=== PATIENT | male | born 1990 | race Caucasian/White ===

== ENCOUNTER 2020-01-18 14:51 | Emergency (ER) | payer BC, SELFPAY ==
[2020-01-18 15:09] VITALS: BP 146/89; PULSE 83; RESP 18; TEMP 36.3; O2SAT 99
[2020-01-18] MEDS: ACETAMINOPHEN 500 MG TABLET 1000 MG PO (15:35)
--- NOTE | 2020-01-18 15:53 | ED.GENADULT ---
HPI - General Adult General Chief complaint: Unspecified Stated complaint: body aches/st Time Seen by Provider: 01/18/20 15:08 Source: patient Mode of arrival: ambulatory Limitations: no limitations History of Present Illness HPI narrative: Patient is a 29-year-old male who presents with upper respiratory symptoms for the last 5 days and was tested for COVID-19 yesterday patient notes body aches chills congestion rhinorrhea and nonproductive cough patient is been taking ibuprofen with minimal improvement patient otherwise on arrival in no distress Related Data Allergies Allergy/AdvReac Type Severity Reaction Status Date / Time amoxicillin Allergy Unknown Unknown Unverified 01/18/20 15:12 clavulanic acid Allergy Unknown Unknown Unverified 01/18/20 15:12 Review of Systems Review of Systems: All systems reviewed & are unremarkable except as noted in HPI and below PMFSH Social History Social History (Updated 01/18/20 @ 15:54 by Yury Guevara PA-C) Smoking status: Never smoker Gender identity (if verbalized by the patient): Male Exam Narrative: Exam Narrative: GENERAL: Well-appearing, well-nourished, and in no acute distress. HEAD: Normocephalic, atraumatic. EYES: PERRLA and EOMI. ENT: Nares clear, no rhinorrhea or epistaxis. Mucous membranes moist. Oropharynx without tonsillar hypertrophy exudate or other lesions. CHEST: Clear to auscultation. No respiratory distress. No wheezes rales or rhonchi HEART: Regular rate and rhythm. No murmur heard. EXTREMITIES: Normal range of motion. No edema. SKIN: Warm, dry, no rash. NEURO: No focal deficits. Alert and oriented x3. Cranial nerves II through XII grossly intact PSYCH: Normal mood and affect. Course Course Emergency Course: Patient in the room in no distress aware of case findings treatment plan diagnosis agreeing to follow-up as directed Vital Signs Vital signs: Vital Signs Temperature 97.4 F L 01/18/20 15:09 Pulse Rate 83 01/18/20 15:09 Respiratory Rate 18 01/18/20 15:09 Blood Pressure 146/89 H 01/18/20 15:09 Pulse Oximetry 99 01/18/20 15:09 Temperature 97.4 F L 01/18/20 15:09 Pulse Rate 83 01/18/20 15:09 Respiratory Rate 18 01/18/20 15:09 Blood Pressure 146/89 H 01/18/20 15:09 Pulse Oximetry 99 01/18/20 15:09 Medical Decision Making MDM Narrative Medical decision making narrative: Patient with likely viral upper respiratory infection pending COVID-19 results afebrile nontoxic-appearing no distress felt appropriate for outpatient reevaluation agreed to follow-up as directed. Vital Signs Vital Signs: Vital Signs Temperature 97.4 F L 01/18/20 15:09 Pulse Rate 83 01/18/20 15:09 Respiratory Rate 18 01/18/20 15:09 Blood Pressure 146/89 H 01/18/20 15:09 Pulse Oximetry 99 01/18/20 15:09 Temperature 97.4 F L 01/18/20 15:09 Pulse Rate 83 01/18/20 15:09 Respiratory Rate 18 01/18/20 15:09 Blood Pressure 146/89 H 01/18/20 15:09 Pulse Oximetry 99 01/18/20 15:09 Lab Data Labs: Strep Screen Presumptive Negative *(Reference Range: Negative)* Discharge Plan Discharge Clinical Impression: Acute upper respiratory infection Patient Disposition: Home, Self-Care Condition: Stable Instructions: Antibiotic Form, COVID-19 (Coronavirus Disease 2019) (ED) Additional Instructions: Follow up with your primary care provider within 1-2 days to set up for reevaluation and discussion of your COVID-19 results. Go to ER for shortness of breath, difficulty breathing, chest pain, fever/chills, weakness, nauseau/vomitting, etc. or any other concerns. Stay well-hydrated Take any prescribed medications as directed. Self quarantine until you have received your results If you do not have a drug allergy to tylenol or motrin and can tolerate it then take tylenol or motrin as needed for discomfort/pain. Prescriptions: New fluticasone propionate [Flonase Allergy Relief]
== END 2020-01-18 16:03 | disposition home or self-care (01) ==
PROVIDERS: Emergency Provider Emergency Medicine; PCP Family Medicine
DX: J06.9 Acute upper respiratory infection, unspecified (principal); Z20.828 Contact with and (suspected) exposure to other viral communicable diseases
CPT/HCPCS: 87081; 87880; 99283; A9270

== ENCOUNTER 2021-09-03 18:12 | Emergency (ER) | payer BC, SELFPAY ==
--- NOTE | ~2021-09-03 | XR_ITS ---
EXAM: XR ankle LT min 3V HISTORY: INVERSION INJURY, LATERAL MALLEOLUS PAIN,HX OF FX COMPARISON: None available FINDINGS: Old lateral talar process fracture. Degenerative change at the tibiotalar joint. Plantar a nd Achilles enthesopathy. No acute fracture or dislocation. No ankle joint effusion. IMPRESSION: No acute osseous finding in the left ankle. Reviewed, dictated and finalized at location K.
--- NOTE | ~2021-09-03 | XR_ITS ---
EXAM: XR ankle RT min 3V HISTORY: INVERSION INJURY, ANTERIOR/GEN PAIN COMPARISON: None available FINDINGS: Normal mineralization. No fracture or dislocation. No lytic or blastic lesion. Degenerativ e changes at the tibiotalar articulation. Plantar and Achilles enthesopathy. Prominent os trigonum. N o erosion or periosteal change. Soft tissues within normal limits. IMPRESSION: No acute osseous finding in the right ankle. Reviewed, dictated and finalized at location K.
[2021-09-03 18:19] VITALS: BP 142/85; PULSE 83; RESP 20; TEMP 36.7; O2SAT 99
--- NOTE | 2021-09-03 18:34 | ED.LOWEXIN ---
HPI - Extremity Injury (Lower) General Chief Complaint: Extremity Injury, Lower Stated Complaint: ankle injury Time Seen by Provider: 09/03/21 18:36 Source: patient and RN notes reviewed Mode of arrival: ambulatory Limitations: no limitations History of Present Illness HPI Narrative: 30-year-old male presents with concern for bilateral ankle injury. He reports 2 weeks ago he jumped into a foam pit and injured his right ankle. Reports the next day stepped into a hole injuring his left ankle. He reports pain is not improving. Reports is more painful to bear weight. He denies intervention for his symptoms. He denies open skin, rash, redness, warmth. He reports swelling and bruising MD complaint: ankle injury Related Data Home Medications Medication Instructions Recorded Confirmed omega-3 fatty acids [Fish Oil] 1,000 mg PO DAILY 09/03/21 09/03/21 simvastatin 10 mg PO DAILY 09/03/21 09/03/21 Allergies Allergy/AdvReac Type Severity Reaction Status Date / Time amoxicillin Allergy Unknown Unknown Verified 09/03/21 18:37 clavulanic acid Allergy Unknown Unknown Verified 09/03/21 18:37 Review of Systems Review of Systems: CONSTITUTIONAL: Denies malaise, chills, sweats, or fever. SKIN: Denies rash or itching, open skin, laceration, abrasion, redness, warmth, swelling. MUSCULOSKELETAL: Reports bilateral ankle pain NEUROLOGIC: Denies numbness, weakness All systems reviewed & are unremarkable except as noted in HPI and below PMFSH Social History Social History (System 02/28/20 @ 09:08 by Oralia Calix) Smoking status: Never smoker Gender identity (if verbalized by the patient): Male Comments At time of signature, agree with nursing past medical, surgical, social and family history. There is no relevant family history pertinent to the presenting complaint Exam Narrative: GENERAL: Well-appearing, well-nourished, and in no acute distress. HEAD: Normocephalic, atraumatic. EYES: PERRLA, conjunctivae clear NECK: Supple. CHEST: Speaks in full sentences. No respiratory distress. HEART: Regular rate and rhythm. Normal and equal peripheral pulses. EXTREMITIES: Bilateral ankles, feet, digits have normal strength and sensation, normal range of motion. Mild left lateral edema and ecchymosis, mild right medial ecchymosis and edema. 5/5 strength with digit flexion and extension. Normal sensation with sensitivity to light touch and pain. No point tenderness. No open wounds, no skin tenting, no devitalized tissue or atrophy, no trophic changes, no obvious deformity, alignment normal, nearby joints and structures intact. Distal pulses palpable and equal bilaterally, skin warm, dry, pink. Capillary refill less than 3 seconds. SKIN: Warm, dry, no rash. NEURO: Alert and oriented x3. PSYCH: Normal mood and affect Course Course Emergency Course: Patient is aware of diagnosis, understands and agrees to treatment plan. Anticipatory guidance given. Patient agrees to follow-up as directed and is aware of reasons to seek care at the emergency department. Portions of this record may have been created with voice recognition software Level of Care: Express Care Visit Vital Signs Vital signs: Vital Signs Temperature 98.1 F 09/03/21 18:19 Pulse Rate 83 09/03/21 18:19 Respiratory Rate 20 09/03/21 18:19 Blood Pressure 142/85 H 09/03/21 18:19 Pulse Oximetry 99 09/03/21 18:19 Temperature 98.1 F 09/03/21 18:19 Pulse Rate 83 09/03/21 18:19 Respiratory Rate 20 09/03/21 18:19 Blood Pressure 142/85 H 09/03/21 18:19 Pulse Oximetry 99 09/03/21 18:19 Reviewed. MDM - Extremity Injury (Lower) MDM Narrative Medical decision making narrative: Patients injury and pain is consistent with musculoskeletal etiology. No signs of neurological or vascular compromise on exam. Compartments and tissues are soft without signs of compartment syndrome. Pain is felt appropriate for further evaluation on an outpatient basis. Imagin
== END 2021-09-03 19:01 | disposition home or self-care (01) ==
PROVIDERS: Emergency Provider Nurse Practitioner; PCP Family Medicine
DX: S93.401A Sprain of unspecified ligament of right ankle, initial encounter (principal); S96.911A Strain of unspecified muscle and tendon at ankle and foot level, right foot, initial encounter; X58.XXXA Exposure to other specified factors, initial encounter; S93.402A Sprain of unspecified ligament of left ankle, initial encounter; S96.912A Strain of unspecified muscle and tendon at ankle and foot level, left foot, initial encounter; W17.2XXA Fall into hole, initial encounter; E78.00 Pure hypercholesterolemia, unspecified; I10 Essential (primary) hypertension
CPT/HCPCS: 73610; 99214; G0463

== ENCOUNTER 2023-01-21 10:35 | Emergency (ER) | payer BC, SELFPAY ==
--- NOTE | ~2023-01-21 | XR_ITS ---
Right foot Technique: AP, oblique, and lateral views were obtained. Clinical History: Injury Findings: No acute fracture or dislocation is seen. Osseous alignment is anatomic. Joint spaces are p reserved without erosive or degenerative change. Plantar calcaneal spur present. Soft tissues are unr emarkable. Impression: No fracture or dislocation. Reviewed, dictated and finalized at location . Impression: No fracture or dislocation.
[2023-01-21 10:42] VITALS: BP 125/75; PULSE 61; RESP 20; TEMP 36.8; O2SAT 99
--- NOTE | 2023-01-21 11:23 | ED.LOWEXIN ---
HPI - Extremity Injury (Lower) General Chief Complaint: Extremity Injury, Lower Stated Complaint: Right Foot Injury Source: patient Mode of arrival: ambulatory Limitations: no limitations History of Present Illness HPI Narrative: 32-year-old male presented for complaint of right foot pain, bruising, and swelling after injury this morning. He states he woke in the night with an upset stomach, and was sitting on the toilet when he fell asleep. He states his legs went numb, and when stood up to walk he kicked the tub. He denies numbness, tingling, weakness of the foot. Denies decreased range of motion the ankle or toes. Has not taken anything for pain. Related Data Home Medications Medication Instructions Recorded Confirmed omega-3 fatty acids 1,000 mg PO DAILY 09/03/21 09/03/21 simvastatin 10 mg tablet 10 mg PO DAILY 09/03/21 09/03/21 Allergies Allergy/AdvReac Type Severity Reaction Status Date / Time amoxicillin Allergy Unknown Unknown Verified 09/03/21 18:37 clavulanic acid Allergy Unknown Unknown Verified 09/03/21 18:37 Review of Systems Review of Systems: CONSTITUTIONAL: Denies body aches, fever, chills EYES: Denies visual changes ENT: Denies rhinorrhea, congestion CARDIOVASCULAR: Denies chest pain, palpitations, or edema. RESPIRATORY: Denies cough or dyspnea. GASTROINTESTINAL: Denies abdominal pain, nausea, vomiting, or diarrhea. SKIN: Denies rash, itching, or wounds. MUSCULOSKELETAL: Reports right foot pain, swelling Denies back pain, joint pain, or myalgia. NEUROLOGIC: Denies headache, numbness, tingling, or weakness. PSYCH: Denies depression or anxiety. All systems reviewed & are unremarkable except as noted in HPI and below [facility] Past Medical History Medical History (Updated 01/21/23 @ 11:44 by Marii Flores APRN) No pertinent past medical history Social History Social History Smoking status: Never smoker Gender identity (if verbalized by the patient): Male Comments At time of signature, I have reviewed and agree with nursing past medical, surgical, social and family history unless otherwise noted. Please see nursing chart for further information. There is no relevant family history pertinent to the presenting complaint Exam Narrative: GENERAL: Well-appearing, well-nourished, and in no acute distress. HEAD: Normocephalic, atraumatic. EYES: PERRLA, conjunctivae clear CHEST: Speaks in full sentences. No respiratory distress. HEART: Regular rate and rhythm. Normal and equal peripheral pulses. EXTREMITIES: Right lateral foot over 4th-5th metatarsals mild swelling and bruising, tender to palpation over the entire dorsal foot as reported; foot has normal strength and sensation, normal range of motion at ankle and toes, reports pain with movement. No open wounds, or obvious deformity; alignment normal, pulse palpable and equal bilaterally, skin warm, dry, pink. Capillary refill less than 3 seconds. SKIN: Warm, dry, no rash. NEURO: Alert and oriented x3. PSYCH: Normal mood and affect Course Course Emergency Course: Patient is aware of diagnosis, understands and agrees to treatment plan. Anticipatory guidance given. Patient agrees to follow-up as directed and is aware of reasons to seek care at the emergency department. Portions of this record may have been created with voice recognition software Level of Care: Express Care Visit Vital Signs Vital signs: Vital Signs Temperature 98.3 F 01/21/23 10:42 Pulse Rate 61 01/21/23 10:42 Respiratory Rate 20 01/21/23 10:42 Blood Pressure 125/75 01/21/23 10:42 Pulse Oximetry 99 01/21/23 10:42 Oxygen Delivery Room Air 01/21/23 10:42 Temperature 98.3 F 01/21/23 10:42 Pulse Rate 61 01/21/23 10:42 Respiratory Rate 20 01/21/23 10:42 Blood Pressure 125/75 01/21/23 10:42 Pulse Oximetry 99 01/21/23 10:42 Oxygen Delivery Room Air
== END 2023-01-21 11:29 | disposition home or self-care (01) ==
PROVIDERS: Emergency Provider Nurse Practitioner Family; PCP Family Medicine
DX: S90.31XA Contusion of right foot, initial encounter (principal); W22.09XA Striking against other stationary object, initial encounter
CPT/HCPCS: 73630; 99213; G0463